=== PATIENT | female | born 1940 | race Caucasian/White ===

== ENCOUNTER 2019-02-06 10:44 | Observation (INO) | payer MEDICARE, OTHER, SELFPAY ==
[2019-02-06] VITALS (10 sets, daily range): BP systolic 111–144; BP diastolic 49–82; PULSE 51–67; RESP 16–20; TEMP 35.9–37; O2SAT 94–100; BMI 26.0; BMI 24.4
--- NOTE | 2019-02-06 11:08 | CT_ITS ---
STUDY: CT BRAIN WITHOUT CONTRAST REASON FOR EXAM: Female, 78 years old. RADIATION DOSAGE (If Supplied By Facility): CTDIvol = ( 60.81 ) mGy, DLP = ( 998.67 ) mGycm TECHNIQUE: Transaxial CT imaging of the brain was performed without administration of intravenous contrast material. Individualized dose optimization techniques were used for this CT. COMPARISON: No relevant priors. FINDINGS: Normal soft tissue structures. Normal calvarium. There is mild cerebral atrophy with widening of the extra-axial spaces and ventricular dilatation. There are areas of decreased attenuation within the white matter tracts of the supratentorial brain, consistent with microvascular disease changes. There are small punctate calcifications of the basal ganglia which are seen in the aging brain as a normal variant. Normal brainstem. Normal cerebellum. There is no intracranial hemorrhage. There are no findings of an acute ischemic infarction. Atherosclerotic calcification of the cavernous portions of the internal carotid arteries and vertebral arteries. Normal visualized paranasal sinuses. CT/Brain/Head without Contrast IMPRESSION: Chronic involutional changes of the brain. Electronically Signed: Gomez Richardson, at 11:36 EDT , Service support ,
--- NOTE | 2019-02-06 11:12 | ED.DCSUM_ITS ---
History of Present Illness Chief Complaint: Dizziness Informant: Patient, Family Onset: Today Current Severity: Severe Narrative: Patient presents with family for vertigo symptoms starting 90 minutes ago. Reports started at home after patient spell heavy perfume. She reports granddaughter drove her to her daughter's work, states symptoms are worsening. Nausea with spinning sensations. She took a home nausea medicine no relief. No stroke history. Symptoms worse with eye opening or head movement. No recent sinus or throat infection. Denies any ringing in the ears. Similar symptoms 3 years ago with vertigo. History of hypertension, hypercholesterolemia. Denies any cardiac history. Allergy to codeine. Denies any speech changes or any hemiparesis. Prior similar symptoms: Yes - 3 years ago Past Medical History - Allergies and Home Meds Allergies/Adverse Reactions: Allergies codeine Allergy (Verified 02/06/19 10:45) Other Smoking Status: Never smoker Review of Systems All systems negative except as indicated - Your work was placed by me. General: Denies: Chills, Fever, Sweats Eyes: Denies: Visual changes - bilaterally, Diplopia ENT: Denies: Rhinorrhea, Sore throat Cardiovascular: Denies: Chest pain, Palpitations Respiratory: Denies: Dyspnea, Cough, Dyspnea on exertion Gastrointestinal: Reports: Nausea Genitourinary: Denies: Dysuria, Hematuria, Frequency Musculoskeletal: Denies: Back pain, Extremity Pain Skin: Denies: Rash, Wounds Neurological: Denies: Headache, Weakness, Numbness Physical Exam Vital Signs/Narrative: Vital Signs Temp Pulse Resp BP Pulse Ox 02/06/19 10:46 96.6 F L 66 20 H 122/82 H 99 General: Well nourished, Well developed Head: Normocephalic, Atraumatic Eyes: Perrl, EOMI, - - Horizontal nystagmus eye movement to the right ENT: Moist mucous membranes, No rhinorrhea Neck: Supple, Nontender Cardiovascular: Regular rate, Regular rhythm, No murmurs Respiratory: No distress, CTA bilaterally, Chest nontender Abdomen: Soft, Nontender, Nondistended, Normal bowel sounds Back: Nontender, Normal Inspection Extremities: Nontender, No edema Skin: Normal color, No rash Neurological: Alert, Oriented x3, Cranial nerves II-XII grossly intact, Normal Strength, Normal Sensation Psychological: Normal affect, Normal Mood Diagnostic/Tx/Re-eval Abnormal Lab Results 02/06/19 02/06/19 02/06/19 11:00 11:00 11:00 WBC 7.9 RBC 4.93 Hgb 14.2 Hct 42.6 MCV 86.4 MCH 28.8 MCHC 33.3 RDW 13.8 RDW Differential 42.1 Plt Count 296 MPV 9.5 Immature Gran % (Auto) 0.300 Neut % (Auto) 55.6 Lymph % (Auto) 33.2 Angel[place] % (Auto) 9.0 Eos % (Auto) 1.4 Baso % (Auto) 0.5 Absolute Neuts (auto) 4.4 Absolute Lymphs (auto) 2.62 Total Counted Not Reportable PT Cancelled INR Cancelled APTT Cancelled Sodium Cancelled Potassium Cancelled Chloride Cancelled Carbon Dioxide Cancelled Anion Gap Cancelled BUN Cancelled Creatinine Cancelled Estim Creat Clear Calc Cancelled Est GFR (MDRD) Af Amer Cancelled Est GFR (MDRD) Non-Af Cancelled BUN/Creatinine Ratio Cancelled Glucose Cancelled Calcium Cancelled 02/06/19 02/06/19 11:40 11:40 WBC RBC Hgb Hct MCV MCH MCHC RDW RDW Differential Plt Count MPV Immature Gran % (Auto) Neut % (Auto) Lymph % (Auto) [place] % (Auto) Eos % (Auto) Baso % (Auto) Absolute Neuts (auto) Absolute Lymphs (auto) Total Counted PT 13.6 INR 1.1 APTT 29.1 Sodium 137 Potassium 3.9 Chloride 103 Carbon Dioxide 25.0 Anion Gap 9 BUN 14 Creatinine 1.11 H Estim Creat Clear Calc 37.93 Est GFR (MDRD) Af Amer 61 Est GFR (MDRD) Non-Af 50 L BUN/Creatinine Ratio 12.6 Glucose 119 H Calcium 9.7 - Medical Decision Making Patient presenting with acute vertigo symptoms. She had horizontal nystagmus on initial evaluation. No other focal deficits. IV was placed labs are stable. Is given fluids, Phenergan. CT head was negative. Reevaluation symptoms were improving, however attempted ambulation upon sitting symptoms return. She was ordered for oral Antivert. Patient still having symptoms, I do feel she benefit from hospitalization for symptom control. I spoke with hospitalist Dr. Vu for admission. ED Disposition - Plan for ED Patient: Disposition: Acute Care Hospital [facility] Diagnosis: Symptomatic vertigo
[2019-02-06] MEDS: proMETHazine 25 MG/ML Syringe 12.5 MG IV (11:14)
[2019-02-06] MEDS: 0.9% Normal Saline 1,000 ML 1000 ML IV (11:15)
--- NOTE | 2019-02-06 11:15 | NURSING ---
CHEMISTRIES AND COAGS HEMOLIZED. RN AWARE
[2019-02-06 11:16] LABS: Absolute Lymphocyte Count 2.62 X10^3/ul (0.83-4.51); Absolute Neutrophil Count 4.4 X10^3/uL (2.0-7.7); Basophil# 0.04 X10^3/uL; Basophil% 0.5 % (0-1); Eosinophil# 0.11 X10^3/uL; Eosinophils% 1.4 % (0-5); Hematocrit 42.6 % (37-47); Hemoglobin 14.2 g/dl (12.0-15.0); Lymphocyte # 2.62 X10^3/ul (4.0); Lymphocyte % 33.2 % (19-41); Mean Corp Hgb Conc 33.3 g/gl (32-36); Mean Corpuscular Hgb 28.8 pg (27.0-32.0); Mean Corpuscular Volume 86.4 fL (81-99); Mean Platelet Vol. 9.5 fl (6.2-12.0); Monocyte# 0.71 X10^3/uL; Neutrophil % 55.6 % (47-70); POSITIVE COUNT NO; POSITIVE DIFFERENTIAL NO; POSITIVE MORPHOLOGY NO; Platelet Count 296 K/mm3 (150-450); RBC Distribution Width CV 13.8 % (11.6-14.6); RBC Distribution Width SD 42.1 fl (35.1-43.9); Red Blood Count 4.93 M/mm3 (4.2-5.4); White Blood Count 7.9 K/mm3 (4.4-11.0)
[2019-02-06 11:57] LABS: International Normalized Ratio 1.1; Prothrombin Time (Protime)PT. 13.6 SECONDS (11.7-14.9)
[2019-02-06 11:58] LABS: Partial Thromboplast Time 29.1 Seconds (24.1-36.2)
[2019-02-06 12:04] LABS: BUN 14 mg/dL (7-18); BUN/Creat Ratio 12.6 RATIO (10-20); Creatinine, Serum 1.11 mg/dL (0.55-1.02); EST Glomerular Filtration Rate 50 mL/min (>60); Est Glom Filt Rate - Afr Amer 61 mL/min (>60); Estimated Creatinine Clearance 37.93 ml/min; Glucose 119 mg/dL (74-106)
[2019-02-06 12:05] LABS: Anion Gap 9 (5-15); Calcium,Total 9.7 mg/dL (8.5-10.1); Chloride 103 mmol/L (98-107); Potassium 3.9 mmol/L (3.5-5.1); Sodium Level 137 mmol/L (136-145)
--- NOTE | 2019-02-06 13:05 | ED.RN ---
pt was unable to ambulate, on sitting up pt became dizzy and noted the room was spinning.
[2019-02-06] MEDS: Meclizine HCl 25 MG Tablet PO (13:37)
--- NOTE | 2019-02-06 13:41 | NURSING ---
PCU SYMPTOMATIC VERTIGO ASHELFAH
--- NOTE | 2019-02-06 13:59 | HP.PCM_ITS ---
Problem List (1) Vertigo Status: Acute (2) History of colon cancer Status: Chronic (3) GERD (gastroesophageal reflux disease) Status: Chronic (4) Hypertension Status: Chronic (5) Hyperlipidemia Status: Chronic History of Present Illness Date of Admission: 02/06/19 Chief Complaint: Dizziness. The patient is a 78 year old F with past medical history as mentioned above presented to the emergency room because of dizziness. Her symptoms started this morning when she was in the car with her granddaughter, started to feel dizzy, described as unsteadiness in the beginning and then she started having spinning around, associated with nausea without vomiting, aggravated by opening her eyes or moving her head, relieved by closing her eyes and without other associated symptoms. She mentioned that she had similar symptoms several years ago with vertigo. She states that she felt some numbness and tingling on both arms but more on the right although she is not sure. She denies focal arm or leg weakness. She denies all speech, blurred vision. She denies ear pain, discharge or change in her hearing. She denies chest pain or shortness of breath. In the emergency department, her vital signs were stable. Her routine blood work was unremarkable. CT scan brain showed no acute findings. She is being admitted for vertigo for evaluation and treatment. Past Medical History Past Medical History (Chronic Problems): Chronic Problems History of colon cancer (Chronic) GERD (gastroesophageal reflux disease) (Chronic) Hypertension (Chronic) Hyperlipidemia (Chronic) Allergies codeine Allergy (Verified 02/06/19 10:45) Other Home Medications: Ambulatory Orders Medication Instructions Recorded Calcium Carbonate [Calcium] 600 mg PO DAILY 02/06/19 Ergocalciferol [Vitamin D] 50,000 unit PO Q7D 02/06/19 Ezetimibe [Zetia] 10 mg PO DAILY 02/06/19 Lisinopril [Zestril] 20 mg PO DAILY 02/06/19 Omeprazole 40 mg PO DAILY 02/06/19 Ondansetron [Ondansetron Odt] 4 mg PO DAILY 02/06/19 Pravastatin [Pravachol] 40 mg PO DAILY 02/06/19 Surgical History: cholecystectomy, colectomy Psychiatric History: No pertinent psych hx 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 Denies: Chest Pain, Chest Pressure, Heaviness, Orthopnea, Syncope Respiratory: Denies: Cough, Pleuritic Pain, Shortness of Breath, Sputum production, Wheezing Gastrointestinal: Reports: Nausea. Denies: Abdominal Pain, Constipation, Diarrhea, Vomiting Genitourinary: Denies: Dysuria, Frequency, Hematuria Musculoskeletal: Denies: Arm Pain, Back Pain, Foot Pain Skin: Denies: Dryness, Rash Neurological: Reports: Numbness, Tingling. Denies: Balance problems, Double vision, Change in Speech, Slurred speech, Confusion, Focal weakness, Headaches Psychiatric: Denies: Anxiety, Depression Endocrine: Denies: Change in Body Habitus, Polydipsia VTE Information - Inpt Only VTE Present on Admission: No VTE Mechan Device Prophylaxis: None VTE Pharm Prophylaxis ordered?: Yes Patient Problems: Active and Suspected Problems Vertigo (Acute) - Physical Exam General: Alert, Oriented x3, Cooperative, No apparent distress HEENT: Atraumatic, PERRLA, EOMI, Normocephalic Oral: Moist Mucosa, No Gingival or Mucosal Lesions/ Ulcerations Neck: Supple, No JVD, Negative Carotid Bruits, Trachea Midline, Thyroid Normal Size and Texture Lungs: Clear to auscultation, Normal air movement, No rhonchi, No wheeze, No rales Cardiovascular: Regular rate, Regular Rhythm, Normal S1, Normal S2, PMI Normal Abdomen: Bowel Sounds Present, Soft, Non Tender, Non-Distended, No Hepato- splenomegaly Extremities: No clubbing, No cyanosis, No edema Skin: No rashes, No breakdown Lymphatic: No Cervical, Supraclavicular, or Inguinal Adenopathy Neurological: Cranial nerves II-XII grossly intact, Motor Exam 5/5 strength throughout, - - Nystagmus. Psych/Mental Status: Normal Affect, Appropriate, Alert and oriented to time, place, person, mood and affect Vital Signs Temp Pulse Resp BP Pulse Ox 96.6 F L 55 L 16 124/49 H 100 02/06/19 10:46 02/06/19 13:04 02/06/19 13:04 02/06/19 13:04 02/06/19 13:04 Oxygen Flow Rate (L/min) 2 Oxygen Delivery Method Room Air Weight: 128 lb 14.4 oz Body Mass Index (BMI) 26.0 Laboratory Tests Past 24 Hrs 02/06/19 02/06/19 02/06/19 11:00 11:00 11:00 WBC 7.9 RBC 4.93 Hgb 14.2 Hct 42.6 MCV 86.4 MCH 28.8 MCHC 33.3 RDW 13.8 RDW Differential 42.1 Plt Count 296 MPV 9.5 Immature Gran % (Auto) 0.300 Neut % (Auto) 55.6 Lymph % (Auto) 33.2 [place] % (Auto) 9.0 Eos % (Auto) 1.4 Baso % (Auto) 0.5 Absolute Neuts (auto) 4.4 Absolute Lymphs (auto) 2.62 Total Counted Not Reportable PT Cancelled INR Cancelled APTT Cancelled Sodium Cancelled Potassium Cancelled Chloride Cancelled Carbon Dioxide Cancelled Anion Gap Cancelled BUN Cancelled Creatinine Cancelled Estim Creat Clear Calc Cancelled Est GFR (MDRD) Af Amer Cancelled Est GFR (MDRD) Non-Af Cancelled BUN/Creatinine Ratio Cancelled Glucose Cancelled Calcium Cancelled 02/06/19 02/06/19 11:40 11:40 WBC RBC Hgb Hct MCV MCH MCHC RDW RDW Differential Plt Count MPV Immature Gran % (Auto) Neut % (Auto) Lymph % (Auto) [place] % (Auto) Eos % (Auto) Baso % (Auto) Absolute Neuts (auto) Absolute Lymphs (auto) Total Counted PT 13.6 INR 1.1 APTT 29.1 Sodium 137 Potassium 3.9 Chloride 103 Carbon Dioxide 25.0 Anion Gap 9 BUN 14 Creatinine 1.11 H Estim Creat Clear Calc 37.93 Est GFR (MDRD) Af Amer 61 Est GFR (MDRD) Non-Af 50 L BUN/Creatinine Ratio 12.6 Glucose 119 H Calcium 9.7 Clinical Impression(s) from Imaging Studies Brain CT 02/06/19 11:08 IMPRESSION: Chronic involutional changes of the brain. Electronically Signed: Gomez Richardson, at 11:36 EDT , Service support , Assessment/Plan All Active Problems Vertigo (Acute) This is a 78 years old female patient presented to the emergency room because of dizziness described as vertigo with spinning sensation and she is being admitted for treatment and evaluation. #1 vertigo: Probably due to BPPV given her history of vascular in the past. Patient is not reliable and she mentioned that she may or may not have right upper extremity numbness and tingling. She does have nystagmus on examination looking to the right side. She has no focal deficit on physical exam. CT scan brain showed no acute findings. Plan: Admit to PCU for observation, cardiac monitoring, NIH stroke scale, routine EKG, IV fluids, IV antiemetics, Antivert, MRI brain, PT OT evaluation and treatment. #2 hypertension: Blood pressure stable, she mentioned that her heart has been on 60s and she has been anywhere between 55 and 60. Continue lisinopril. #3 hyperlipidemia: Continue Zetia and pravastatin. #4 history of colon cancer: Status post colectomy, in remission, stable. #5 GERD: Continue PPI. #6 DVT prophylaxis: Subcu Lovenox. This note was generated with Anago dictation software. It may contain incorrect words, spelling, and punctuation that were not noted in checking the note before signing. Code Visit OBSV E&M: 29784 Initial observation care L3
--- NOTE | 2019-02-06 14:24 | MRI_ITS ---
STUDY: MRI BRAIN WITHOUT CONTRAST REASON FOR EXAM: Female, 78 years old. Vertigo with nausea and vomiting TECHNIQUE: Standardized multiplanar fat and water weighted pulse sequences were obtained. COMPARISON: CT same day FINDINGS: Normal size of the ventricles and extra-axial spaces for the patient's age. There are multiple white matter hyperintensities, distributed throughout the deep white matter tracts of the cerebral hemispheres, consistent with moderate chronic white matter ischemic changes. Normal bilateral basal ganglia. Normal thalami. There is no extra-axial fluid accumulation. Normal flow voids within the major intracranial circulation suggesting patency by spin echo criteria. Normal sella turcica, pituitary gland, infundibular stalk, optic chiasm and hypothalamus. Normal tectal plate and pineal gland. Normal midbrain, vikas and medulla. Normal cerebellum. Normal basal cisterns. Normal bilateral temporal bones. Normal bilateral internal auditory canals. No demonstrated orbital abnormality, within the constraints of a routine brain study. Normal visualized paranasal sinuses. Mild bilateral mastoid sinus disease. Normal visualized soft tissue structures. Normal visualized upper cervical spine. MRI/Brain without Contrast IMPRESSION: No evidence of acute infarct or hemorrhage. Moderate microangiopathic white matter disease. Electronically Signed: Davi Whyte MD at 16:17 EDT Tel , Service support ,
--- NOTE | 2019-02-06 14:24 | EKG12_ITS ---
Test Reason : VERTIGO Blood Pressure : / mmHG Vent. Rate : 053 BPM Atrial Rate : 053 BPM P-R Int : 170 ms QRS Dur : 082 ms QT Int : 446 ms P-R-T Axes : 044 012 028 degrees QTc Int : 418 ms Sinus bradycardia with Premature atrial complexes Nonspecific T wave abnormality Abnormal ECG No previous ECGs available Confirmed by DAISY FERRARA ([id number]), design editor JEFFRY CONTRERAS ([id number]) on 02/12/2019 2:24:32 PM Referred By: CECELIA Confirmed By:TOBI FERRARA
[2019-02-06] MEDS: 0.9% Normal Saline 1,000 ML 75 ML IV (14:30)
[2019-02-06] MEDS: Pravastatin 40 MG Tablet PO (21:21)
[2019-02-07 03:02] VITALS: PULSE 62
[2019-02-07 03:22] VITALS: BP 127/81; PULSE 54; RESP 14; TEMP 36.7; O2SAT 95
[2019-02-07 07:18] VITALS: PULSE 51
[2019-02-07 09:22] VITALS: BP 124/65; PULSE 59; RESP 16; TEMP 36.4; O2SAT 96
[2019-02-07] MEDS: Ezetimibe 10 MG Tablet PO (09:29)
[2019-02-07] MEDS: Pantoprazole Sodium 40 MG Tablet PO (09:29)
[2019-02-07] MEDS: Enoxaparin 30 MG/0.3 ML Syringe SC (09:29)
[2019-02-07] MEDS: Lisinopril 20 MG Tablet PO (09:30)
[2019-02-07] MEDS: Acetaminophen 325 MG Tablet 650 MG PO (11:29)
--- NOTE | 2019-02-07 13:18 | DCINST_ITS ---
- Discharge Diagnoses Current Active Problems: Current Active and Chronic Problems Vertigo (Acute) History of colon cancer (Chronic) GERD (gastroesophageal reflux disease) (Chronic) Hypertension (Chronic) Hyperlipidemia (Chronic) You will use the following diet at home:: No restrictions Your food should be the consistency of: Regular Your liquids should be the consistency of: Regular/Thin Discharge Activity: Return to Normal Activity Weight Bearing Status: Full weight bearing Allergies/Adverse Reactions: Allergies codeine Allergy (Verified 02/06/19 10:45) Other Medications to take at Discharge Calcium Carbonate [Calcium] 600 mg PO BID 02/06/19 Ergocalciferol [Vitamin D] 2,000 unit PO BID 02/06/19 Ezetimibe [Zetia] 10 mg PO QHS 02/06/19 Lisinopril [Zestril] 20 mg PO DAILY 02/06/19 Omeprazole 40 mg PO DAILY PRN 02/06/19 Pravastatin [Pravachol] 40 mg PO QHS 02/06/19 Diazepam [Valium] 2 mg PO 4X/DAY PRN PRN #20 tablet 02/07/19 Ondansetron [Ondansetron Odt] 4 mg PO Q6H PRN PRN #30 tab.rapdis 02/07/19 The following prescriptions were given: Ondansetron [Ondansetron Odt] 4 mg PO Q6H PRN PRN #30 tab.rapdis PRN Reason: Nausea Diazepam [Valium] 2 mg PO 4X/DAY PRN PRN #20 tablet PRN Reason: Dizziness Primary Care Physician: Nirav Giron MD [Primary Care Provider] - Please follow up with your Primary Care Physician in: in 2 weeks Test Results: Test results from this visit will be discussed in further detail at your follow- up appointment, if applicable.
[2019-02-07 13:35] VITALS: BP 140/74; PULSE 54; RESP 16; TEMP 36.4; O2SAT 98
--- NOTE | 2019-02-08 16:42 | PCM.DC.SUM ---
Discharge Date and Diagnosis Date of Admission: 02/06/19 Date of Discharge: 02/07/19 - Primary Discharge Diagnosis #1 benign positional vertigo #2 hypertension #3 hyperlipidemia - Secondary Discharge Diagnosis Chronic Problems History of colon cancer (Chronic) GERD (gastroesophageal reflux disease) (Chronic) Hypertension (Chronic) Hyperlipidemia (Chronic) Hospital Course and Treatment Operations: None Procedures: None Summary of Care Provided: The patient is a 78 year old F was seen in the emergency room it was a [facility] with a chief complaint of dizziness. Patient had also complaints of nausea along with the dizziness. Patient denied any syncope or any visual disturbances. Work-up in the emergency room including CT of the head was unremarkable. Patient was placed in observation status on PCU and underwent an MRI of the brain which did not show any abnormalities. Patient's symptoms resolved while she was hospitalized, on 02/07/2019, patient was seen and examined felt to be in stable condition for discharge home Physical exam: General: Patient is alert and oriented x3 and does not appear in any distress HEENT: Thyroid is of normal size without thyroid nodules, no JVD is noted. Lungs: Lungs are clear to auscultation apex to base bilaterally, no rales rhonchi or wheezes were noted. Heart: Heart rate and rhythm is regular without ectopy, there were no murmurs, normal S1 and S2. Abdomen: Abdomen is soft, bowel sounds are present in all 4 quadrants, no hernias or abdominal masses were palpated. Neuro: Neurological exam is nonfocal, cranial nerves II through XII are grossly intact, sensation light touch and pinprick was intact. Psych: Patient is alert and oriented x3, she does not appear anxious or depressed. On 02/07/2019, patient was seen and examined and felt to be in stable condition for discharge home - Physical Exam Vital Signs Temp Pulse Resp BP Pulse Ox 97.6 F L 54 L 16 140/74 H 98 02/07/19 13:35 02/07/19 13:35 02/07/19 13:35 02/07/19 13:35 02/07/19 13:35 Oxygen Flow Rate (L/min) 2 Oxygen Delivery Method Room Air Weight: 54.8 kg Body Mass Index (BMI) 24.4 Intake and Output for Last 24 Hours 02/06/19 02/07/19 02/08/19 23:59 23:59 23:59 Intake Total 1356 / 1356 835 / 835 Balance 1356 / 1356 835 / 835 Discharge Activity: Return to Normal Activity Weight Bearing Status: Full weight bearing Home Medications: Medications to take at Discharge Calcium Carbonate [Calcium] 600 mg PO BID 02/06/19 Ergocalciferol [Vitamin D] 2,000 unit PO BID 02/06/19 Ezetimibe [Zetia] 10 mg PO QHS 02/06/19 Lisinopril [Zestril] 20 mg PO DAILY 02/06/19 Omeprazole 40 mg PO DAILY PRN 02/06/19 Pravastatin [Pravachol] 40 mg PO QHS 02/06/19 Diazepam [Valium] 2 mg PO 4X/DAY PRN PRN #20 tablet 02/07/19 Ondansetron [Ondansetron Odt] 4 mg PO Q6H PRN PRN #30 tab.rapdis 02/07/19 Following Prescrptions Were Given to Patient: Ondansetron [Ondansetron Odt] 4 mg PO Q6H PRN PRN #30 tab.rapdis PRN Reason: Nausea Diazepam [Valium] 2 mg PO 4X/DAY PRN PRN #20 tablet PRN Reason: Dizziness Primary Care Physician: Nirav Giron MD [Primary Care Provider] - Please follow up with your Primary Care Physician in: in 2 weeks Disposition: Home Minutes spent on discharge:: 31 Patient Condition:: Stable Medical Necessity - Tobacco Use Smoking Status: Never smoker Meaningful Use Info Meaningful Use Diagnoses (Choose all that apply): None applicable Code Visit OBSV E&M: 91462 Observation care discharge
--- NOTE | 2019-02-08 16:57 | DS.PCM_ITS ---
Discharge Date and Diagnosis Date of Admission: 02/06/19 Date of Discharge: 02/07/19 - Primary Discharge Diagnosis #1 benign positional vertigo #2 hypertension #3 hyperlipidemia - Secondary Discharge Diagnosis Chronic Problems History of colon cancer (Chronic) GERD (gastroesophageal reflux disease) (Chronic) Hypertension (Chronic) Hyperlipidemia (Chronic) Hospital Course and Treatment Operations: None Procedures: None Summary of Care Provided: The patient is a 78 year old F was seen in the emergency room it was a [facility] with a chief complaint of dizziness. Patient had also complaints of nausea along with the dizziness. Patient denied any syncope or any visual disturbances. Work-up in the emergency room including CT of the head was unremarkable. Patient was placed in observation status on PCU and underwent an MRI of the brain which did not show any abnormalities. Patient's symptoms resolved while she was hospitalized, on 02/07/2019, patient was seen and examined felt to be in stable condition for discharge home Physical exam: General: Patient is alert and oriented x3 and does not appear in any distress HEENT: Thyroid is of normal size without thyroid nodules, no JVD is noted. Lungs: Lungs are clear to auscultation apex to base bilaterally, no rales rhonchi or wheezes were noted. Heart: Heart rate and rhythm is regular without ectopy, there were no murmurs, normal S1 and S2. Abdomen: Abdomen is soft, bowel sounds are present in all 4 quadrants, no hernias or abdominal masses were palpated. Neuro: Neurological exam is nonfocal, cranial nerves II through XII are grossly intact, sensation light touch and pinprick was intact. Psych: Patient is alert and oriented x3, she does not appear anxious or depress ed. On 02/07/2019, patient was seen and examined and felt to be in stable condition for discharge home - Physical Exam Vital Signs Temp Pulse Resp BP Pulse Ox 97.6 F L 54 L 16 140/74 H 98 02/07/19 13:35 02/07/19 13:35 02/07/19 13:35 02/07/19 13:35 02/07/19 13:35 Oxygen Flow Rate (L/min) 2 Oxygen Delivery Method Room Air Weight: 54.8 kg Body Mass Index (BMI) 24.4 Intake and Output for Last 24 Hours 02/06/19 02/07/19 02/08/19 23:59 23:59 23:59 Intake Total 1356 / 1356 835 / 835 Balance 1356 / 1356 835 / 835 Discharge Activity: Return to Normal Activity Weight Bearing Status: Full weight bearing Home Medications: Medications to take at Discharge Calcium Carbonate [Calcium] 600 mg PO BID 02/06/19 Ergocalciferol [Vitamin D] 2,000 unit PO BID 02/06/19 Ezetimibe [Zetia] 10 mg PO QHS 02/06/19 Lisinopril [Zestril] 20 mg PO DAILY 02/06/19 Omeprazole 40 mg PO DAILY PRN 02/06/19 Pravastatin [Pravachol] 40 mg PO QHS 02/06/19 Diazepam [Valium] 2 mg PO 4X/DAY PRN PRN #20 tablet 02/07/19 Ondansetron [Ondansetron Odt] 4 mg PO Q6H PRN PRN #30 tab.rapdis 02/07/19 Following Prescrptions Were Given to Patient: Ondansetron [Ondansetron Odt] 4 mg PO Q6H PRN PRN #30 tab.rapdis PRN Reason: Nausea Diazepam [Valium] 2 mg PO 4X/DAY PRN PRN #20 tablet PRN Reason: Dizziness Primary Care Physician: Nirav Giron MD [Primary Care Provider] - Please follow up with your Primary Care Physician in: in 2 weeks Disposition: Home Minutes spent on discharge:: 31 Patient Condition:: Stable Medical Necessity - Tobacco Use Smoking Status: Never smoker Meaningful Use Info Meaningful Use Diagnoses (Choose all that apply): None applicable Code Visit OBSV E&M: 52393 Observation care discharge
== END 2019-02-07 13:17 | disposition home or self-care (01) ==
LOC: ED 13:39 → PCU 13:51
PROVIDERS: Admitting Provider Hospitalist; Emergency Provider Emergency Medicine; Family Provider Family Medicine; PCP Family Medicine; Visit Provider Internal Medicine
DX: H81.10 Benign paroxysmal vertigo, unspecified ear (principal); I10 Essential (primary) hypertension; E78.5 Hyperlipidemia, unspecified; K21.9 Gastro-esophageal reflux disease without esophagitis; Z85.038 Personal history of other malignant neoplasm of large intestine; Z79.899 Other long term (current) drug therapy; R11.0 Nausea; R20.0 Anesthesia of skin; R20.2 Paresthesia of skin; Z90.49 Acquired absence of other specified parts of digestive tract
CPT/HCPCS: 36592; 70450; 70551; 80048; 85025; 85610; 85730; 93005; 96372; 96374; 99218; 99284; J7030; A4216; G0378